=== PATIENT | female | born 1995 ===

== ENCOUNTER 2016-08-08 18:08 | Emergency (ER) | payer BC ==
[2016-08-08 18:15] VITALS: BP 125/81; PULSE 88; RESP 18; TEMP 98.6; O2SAT 100
[2016-08-08] MEDS ORDERED: Sodium Chloride 0.9% 1,000 ML IV STA (18:21)
[2016-08-08 19:01] LABS: RBC URINE 3 /hpf (0-3); URINE BACTERIA RARE (<OCC); URINE BILIRUBIN NEGATIVE (NEGATIVE); URINE BLOOD NEGATIVE (NEGATIVE); URINE COLOR YELLOW (YELLOW); URINE GLUCOSE (UA) NEG (Normal); URINE KETONE NEGATIVE (NEGATIVE); URINE LEUKOCYTE ESTERASE NEG Leu/uL (Negative); URINE PROTEIN 30 mg/dL (NEGATIVE); URINE UROBILINOGEN 0.2-1.0 mg/dL (0.2-1.0); WBC URINE 1 /hpf (0-5)
[2016-08-08 19:08] LABS: BASO # 0.1 K/uL (0.0-0.2); BASO % 0.4 % (0.0-2.0); EOS % 0.3 % (0.0-4.0); HEMATOCRIT 39.2 % (34.0-47.0); LYMPH # 1.3 K/uL (1.0-4.3); LYMPH % 10.8 % (20.0-40.0); MEAN CELL VOLUME 78.9 fl (81.0-99.0); MEAN CORPUSCULAR HEMOGLOBIN 25.1 pg (27.0-31.0); MEAN CORPUSCULAR HGB CONC 31.8 g/dL (33.0-37.0); MEAN PLATELET VOLUME 9.1 fl (7.2-11.7); MONO # 0.5 K/uL (0.0-0.8); MONO % 4.1 % (0.0-10.0); NEUT # 10.3 K/uL (1.8-7.0); NEUT % 84.4 % (50.0-75.0); RED CELL DISTRIBUTION WIDTH 15.7 % (11.5-14.5); WHITE BLOOD COUNT 12.3 K/uL (4.8-10.8)
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
[2016-08-08 19:38] LABS: ALB/GLOB RATIO 1.4 (1.0-2.1); ALKALINE PHOSPHATASE 56 U/L (38-126); ALT/SGPT 27 U/L (9-52); AST/SGOT 24 U/L (14-36); BILIRUBIN,TOTAL 0.5 mg/dl (0.2-1.3); BLOOD UREA NITROGEN 12 mg/dl (7-17); CARBON DIOXIDE 25 mmol/L (22-30); CHLORIDE 101 mmol/L (98-107); GFR AFRICAN-AMERICAN > 60; GLUCOSE,RANDOM 83 mg/dL (65-105); POTASSIUM 3.8 MMOL/L (3.6-5.0); SODIUM 137 mmol/l (132-148); TOTAL PROTEIN 7.9 G/DL (6.3-8.2)
== END 2016-08-08 20:16 | disposition home or self-care (01) ==
LOC: H.ER 18:08
DX: R10.9 Unspecified abdominal pain (principal)
CPT/HCPCS: 80053; 81003; 81025; 85025; 87390; 87491; 87591; 96374; 99283; J2405; J7040

== ENCOUNTER 2016-12-26 19:29 | Emergency (ER) | payer BC, MEDICAID ==
[2016-12-26 19:36] VITALS: O2SAT 100
[2016-12-26] MEDS ORDERED: Sodium Chloride 0.9% 1,000 ML IV STA (20:20)
[2016-12-26 20:44] LABS: BASO % 0.5 % (0.0-2.0); EOS # 0.1 K/uL (0.0-0.7); EOS % 1.2 % (0.0-4.0); HEMATOCRIT 38.7 % (34.0-47.0); LYMPH # 1.7 K/uL (1.0-4.3); LYMPH % 18.8 % (20.0-40.0); MEAN CELL VOLUME 84.4 fl (81.0-99.0); MEAN CORPUSCULAR HEMOGLOBIN 27.6 pg (27.0-31.0); MEAN CORPUSCULAR HGB CONC 32.7 g/dL (33.0-37.0); MEAN PLATELET VOLUME 8.7 fl (7.2-11.7); MONO # 0.6 K/uL (0.0-0.8); MONO % 6.1 % (0.0-10.0); NEUT # 6.8 K/uL (1.8-7.0); NEUT % 73.4 % (50.0-75.0); RED CELL DISTRIBUTION WIDTH 14.6 % (11.5-14.5); WHITE BLOOD COUNT 9.2 K/uL (4.8-10.8)
--- NOTE | 2016-12-26 20:46 | ED PDOC ---
HPI: Abdomen Time Seen by Provider: 12/26/16 20:01 Chief Complaint (Nursing): Abdominal Pain Chief Complaint (Provider): Abdominal pain and vomiting History Per: Patient History/Exam Limitations: no limitations Onset/Duration Of Symptoms: Days Current Symptoms Are (Timing): Still Present Location Of Pain/Discomfort: Epigastric Quality Of Discomfort: Burning Associated Symptoms: Nausea, Vomiting (3 episodes). denies: Fever, Chills Additional Complaint(s): Patient is a 21 y/o female () who is 6 weeks and presents to the ED complaining of epigastric and lower abdominal pain described as burning, with 3 episodes of vomiting. Patient reports she felt nauseated all day and that the burning pain is worse with vomiting. She denies any fever, chills, vaginal bleeding, or vaginal discharge. PCP: FAMILY PROVIDER,NO Abnormal Vaginal Bleeding: No : 2 Para: 1 Past Medical History Reviewed: Historical Data, Nursing Documentation, Vital Signs Vital Signs: Last Vital Signs Temp 98.5 F 12/26/16 19:33 Pulse 74 12/26/16 19:33 Resp 16 12/26/16 19:33 BP 140/69 12/26/16 19:33 Pulse Ox 100 12/26/16 23:47 - Medical History PMH: No Chronic Diseases - Surgical History Surgical History: No Surg Hx - Family History Family History: States: No Known Family Hx, Unknown Family Hx - Social History Current smoker - smoking cessation education provided: No Ex-Smoker (has not smoked in the last 12 months): No Alcohol: Social Drugs: Other (Xanax, Oxycodone) - Home Medications Home Medications: Ambulatory Orders Medication Instructions Recorded Doxylamine/Pyridoxine HCl (B6) 2 each PO QPM #30 tablet. 12/26/16 [Karen Pierce 10-10 mg Tablet] Famotidine 20 mg PO BID #30 tablet 12/26/16 Famotidine [Pepcid] 20 mg PO BID #20 tab 12/26/16 - Allergies Allergies/Adverse Reactions: Allergies Allergy/AdvReac Type Severity Reaction Status Date / Time No Known Allergies Allergy Verified 08/08/16 18:10 Review of Systems ROS Statement: Except As Marked, All Systems Reviewed And Found Negative Constitutional: Negative for: Fever, Chills Gastrointestinal: Positive for: Nausea, Vomiting, Abdominal Pain (epigastric and lower abdomen) Genitourinary Female: Negative for: Vaginal Discharge, Vaginal Bleeding Physical Exam - Reviewed Nursing Documentation Reviewed: Yes Vital Signs Reviewed: Yes - Physical Exam Appears: Positive for: No Acute Distress Head Exam: Positive for: ATRAUMATIC, NORMOCEPHALIC Skin: Positive for: Normal Color, Warm Eye Exam: Positive for: Normal appearance, EOMI, PERRL Neck: Positive for: Normal, Painless ROM, Supple Cardiovascular/Chest: Positive for: Regular Rate, Rhythm. Negative for: Murmur Respiratory: Positive for: Normal Breath Sounds. Negative for: Respiratory Distress Gastrointestinal/Abdominal: Positive for: Soft, Tenderness (mild epigastric tenderness to palpation) Back: Positive for: Normal Inspection. Negative for: L CVA Tenderness, R CVA Tenderness, Vertebral Tenderness Extremity: Positive for: Normal ROM. Negative for: Pedal Edema, Deformity Neurologic/Psych: Positive for: Alert, Oriented (x3). Negative for: Motor/ Sensory Deficits - Laboratory Results Result Diagrams: 12/26/16 20:40 12/26/16 20:40 - ECG O2 Sat by Pulse Oximetry: 100 (RA) Pulse Ox Interpretation: Normal Medical Decision Making Medical Decision Making: Time: 2018 Initial Impression: GERD, hyperemesis Initial Plan: --Labs --ED Urine --ED Urine Dipstick --Sodium Chloride 0.9% IV 1,000 mls/hr --Pepcid 20mg IVP --Reglan 10mg IVPB --Urine Culture --Urinalysis --US OB Transvaginal --Reevaluation 2310 US FINDINGS Gestation: A single intrauterine gestation is identified the crown-rump length measuring 2.9 mm, corresponding to an approximate gestational age of 5 weeks and 6 days. cardiac activity is identified at a rate of 112 beats per minute. Placenta/amniotic fluid: Cannot be adequately evaluated due to the early gestational age. Uterus/cervix: Cervix measures 4 cm, and is closed. Ovaries: Unremarkable in echogenicity and size. No mass. Free fluid: No free fluid. IMPRESSION: Single intrauterine gestation with a gestational age of 5 weeks and 6 days. cardiac activity is identified. 2341 Upon re-evaluation, patient is tolerating PO and feeling much better. Patient is stable for discharge home. Scribe Attestation: Documented by Lonny York and Deepti Juarez, acting as a scribe for Chase Teague MD Provider Scribe Attestation: All medical record entries made by the Scribe were at my direction and personally dictated by me. I have reviewed the chart and agree that the record accurately reflects my personal performance of the history, physical exam, medical decision making, and the department course for this patient. I have also personally directed, reviewed, and agree with the discharge instructions and disposition. Disposition - Clinical Impression Clinical Impression: Abdominal pain during - Disposition [facility] Disposition: Routine/Home Disposition Time: 23:41 Condition: STABLE Prescriptions: Doxylamine/Pyridoxine HCl (B6) [Karen Pierce 10-10 mg Tablet] 2 each PO QPM #30 tablet. Famotidine [Pepcid] 20 mg PO BID #20 tab Famotidine 20 mg PO BID #30 tablet Instructions: Abdominal Pain in (ED), Diet for Ulcers and Gastritis (ED), Gastroesophageal Reflux Disease (ED) Forms: [employer] [facility] ([place])
[2016-12-26 20:56] LABS: BLOOD UREA NITROGEN 9 mg/dl (7-17); CALCIUM 9.3 mg/dL (8.4-10.2); CARBON DIOXIDE 24 mmol/L (22-30); CHLORIDE 104 mmol/L (98-107); GFR AFRICAN-AMERICAN > 60; GLUCOSE,RANDOM 97 mg/dL (65-105); LIPASE 57 U/L (23-300); POTASSIUM 3.7 MMOL/L (3.6-5.0); SODIUM 138 mmol/l (132-148)
[2016-12-26 21:00] LABS: RBC URINE 3 /hpf (0-3); URINE BACTERIA FEW (<OCC); URINE BILIRUBIN NEGATIVE (NEGATIVE); URINE BLOOD NEGATIVE (NEGATIVE); URINE COLOR STRAW (YELLOW); URINE GLUCOSE (UA) NEG (Normal); URINE KETONE NEGATIVE (NEGATIVE); URINE LEUKOCYTE ESTERASE SMALL Leu/uL (Negative); URINE PROTEIN NEGATIVE (NEGATIVE); URINE UROBILINOGEN 0.2-1.0 mg/dL (0.2-1.0); WBC URINE 1 /hpf (0-5)
[2016-12-27 00:17] VITALS: BP 129/75; PULSE 82; RESP 17; TEMP 98
--- NOTE | 2016-12-27 15:11 | US ---
PROCEDURE: First trimester ultrasound HISTORY: Abdominal pain and vomiting, by history 6 weeks . COMPARISON: None available. TECHNIQUE: Transvaginal only. Real -time technique with 2D, duplex and color Doppler FINDINGS: LMP: 11/11/2016 Prior examinations from the current : None TECHNIQUE: Real-time 2D imaging, duplex and color Doppler. FINDINGS: Cardiac activity: Present Rate: 113 BPM Measurements: Elkins rump length: 0.29 cm Gestational age based on CRL 5 weeks 6 days Gestational age based on gestational sac measurement 5 weeks 6 days Gestational age derived from LMP: 6 weeks 3 days LUDY based on LMP: 08/18/2017 LUDY based on biometry: 08/22/2017 Gestational concordance documented Yolk sac identified Uterus: Unremarkable. No Cervical abnormalities: Negative examination for cervical dilatation or effacement. Closed cervix, cervical length 4.04 cm Subchorionic hemorrhage: None ADNEXA: Right: 1.9 x 2.7 x 3.4 cm. Multiple subcentimeter follicles. Normal Doppler arterial waveform documented. Left: 0.9 x 2.7 x 2.2 cm. Multiple subcentimeter follicles. Normal Doppler arterial waveform documented Fluid in the cul-de-sac: None IMPRESSION: Five weeks 6 days live intrauterine gestation. Gestational concordance documented. Concordant results (preliminary interpretation) provided by [employer]. Procedure Completed: 22:14 Preliminary ([facility]) Report: Dictated and Authenticated: 23:10 Final Interpretation: 15:10 December 27, 2016.
== END 2016-12-27 00:22 | disposition home or self-care (01) ==
LOC: H.ER 19:29
DX: O26.91 Pregnancy related conditions, unspecified, first trimester (principal); R10.2 Pelvic and perineal pain; Z3A.01 Less than 8 weeks gestation of pregnancy
CPT/HCPCS: 76817; 80048; 81003; 81025; 83690; 84702; 85025; 87086; 96361; 96374; 96375; 99284; J2765; J7040

== ENCOUNTER 2018-05-10 20:05 | Emergency (ER) | payer BC, MEDICAID ==
[2018-05-10 20:19] VITALS: RESP 16
[2018-05-10] MEDS ORDERED: Iohexol 240 (50 ml) PO ONE ×2 (20:47)
[2018-05-10] MEDS ORDERED: Sodium Chloride 0.9% 1,000 ML IV STA (20:50)
--- NOTE | 2018-05-10 21:09 | ED PDOC ---
HPI: Abdomen Time Seen by Provider: 05/10/18 20:29 Chief Complaint (Nursing): Abdominal Pain Chief Complaint (Provider): abd pain History Per: Patient (23yr old female c/o RLQ abd pain and epigastric pain for intermittently for 2 months. +nausea/vomiting and associated diarrhea with abd pain episodes. Pt reports she was seen today by pmd and for OP "ultrasound". Pt vebalizes pain worse after eating, describes pain as "burning" sensation. Denies urinary complaints and fever. ) History/Exam Limitations: no limitations Onset/Duration Of Symptoms: Days, Intermittent Episodes Pain Scale Rating Of: 9 Location Of Pain/Discomfort: RLQ, Epigastric, Periumbilical Quality Of Discomfort: Burning, "Pain" Associated Symptoms: Vomiting, Diarrhea Exacerbating Factors: Food Last Bowel Movement: Today Past Medical History Reviewed: Historical Data, Nursing Documentation, Vital Signs Vital Signs: Last Vital Signs Temp 98.1 F 05/10/18 20:16 Pulse 52 L 05/10/18 20:16 Resp 16 05/10/18 20:16 BP 116/60 05/10/18 20:16 Pulse Ox 98 05/10/18 20:16 - Medical History PMH: No Chronic Diseases - Surgical History Surgical History: No Surg Hx - Family History Family History: States: Unknown Family Hx - Home Medications Home Medications: Ambulatory Orders Medication Instructions Recorded Doxylamine/Pyridoxine HCl (B6) 2 each PO QPM #30 tablet. 12/26/16 [Karen Pierce 10-10 mg Tablet] Famotidine 20 mg PO BID #30 tablet 12/26/16 Famotidine [Pepcid] 20 mg PO BID #20 tab 12/26/16 Dicyclomine [Bentyl] 20 mg PO TID PRN #15 tab 05/11/18 Famotidine [Pepcid] 20 mg PO BID #14 tab 05/11/18 Ondansetron ODT [Zofran ODT] 4 mg PO Q8 PRN #10 odt 05/11/18 - Allergies Allergies/Adverse Reactions: Allergies Allergy/AdvReac Type Severity Reaction Status Date / Time No Known Allergies Allergy Verified 08/08/16 18:10 Review of Systems ROS Statement: Except As Marked, All Systems Reviewed And Found Negative Gastrointestinal: Positive for: Nausea, Vomiting, Abdominal Pain, Diarrhea Physical Exam - Reviewed Nursing Documentation Reviewed: Yes Vital Signs Reviewed: Yes - Physical Exam Appears: Positive for: Well, Non-toxic, Uncomfortable (pain) Head Exam: Positive for: ATRAUMATIC, NORMAL INSPECTION, NORMOCEPHALIC Skin: Positive for: Normal Color, Warm, DRY Eye Exam: Positive for: Normal appearance ENT: Positive for: Normal ENT Inspection Neck: Positive for: Normal Cardiovascular/Chest: Positive for: Regular Rate, Rhythm Respiratory: Positive for: CNT, Normal Breath Sounds Gastrointestinal/Abdominal: Positive for: Normal Exam, Bowel Sounds (normal bowel sounds), Soft, Tenderness (RLQ, periumbilical and epigastric ) Back: Positive for: Normal Inspection Extremity: Positive for: Normal ROM Neurologic/Psych: Positive for: Alert, Oriented - Laboratory Results Result Diagrams: 05/10/18 21:14 05/10/18 21:14 - ECG O2 Sat by Pulse Oximetry: 98 - Progress ED Course And Treament: -cbc -cmp -lipase -upreg -urinalysis -IV toradol -IV zofran -IV pepcid CT SCAN OF THE ABDOMEN AND PELVIS WITH CONTRAST. CLINICAL HISTORY: Right lower quadrant pain. TECHNIQUE: Multiple axial and coronal CT images were obtained through the abdomen and pelvis after administration of intravenous contrast material. COMMENTS: Changes of pelvic congestion syndrome. Moderate amount of fecal residue in the sigmoid colon. 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 Chronic finding. The liver is of uniform attenuation without mass or defect. There is no intra or extrahepatic biliary ductal dilatation. The spleen is normal. The gallbladder is within normal limits. The pancreas is of normal contour and attenuation characteristics. There is no evidence of adrenal mass. Both kidneys demonstrate prompt and equal nephrograms. The kidneys are normal in size, shape and configuration. There is no evidence of renal or ureteral mass. No renal or ureteral calculi are identified. There is no hydroureter or hydronephrosis. No evidence for appendicitis. There is no bowel wall thickening. No evidence for small or large bowel obstruction. There is no evidence of abdominal ascites or lymphadenopathy. There is no evidence of intrinsic or extrinsic bladder mass. There is no pelvic ascites or lymphadenopathy. Images of the lung bases show no evidence of pleural or parenchymal mass. There are no pleural effusions. The bony structures are free of lytic or blastic lesions. IMPRESSION: Changes of pelvic congestion syndrome. Moderate amount of fecal residue in the sigmoid colon. 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 Chronic finding. No evidence of acute abdominal or pelvic pathology On re-eval, patient resting comfortably; states pain improved Patient educated on findings, discharged with instructions to follow up with PMD and [facility] Rx Pepcid, Zofran, and Bentyl provided Return precautions given Disposition - Clinical Impression Clinical Impression: Abdominal pain - Patient ED Disposition Is Patient to be Admitted: No Counseled Patient/Family Regarding: Studies Performed, Diagnosis, Need For Followup, Rx Given - Disposition Disposition: Routine/Home Disposition Time: 02:12 Condition: IMPROVED Prescriptions: Dicyclomine [Bentyl] 20 mg PO TID PRN #15 tab PRN Reason: Pain, Mild (1-3) Famotidine [Pepcid] 20 mg PO BID #14 tab Ondansetron ODT [Zofran ODT] 4 mg PO Q8 PRN #10 odt PRN Reason: Nausea/Vomiting Instructions: Acute Abdomen (Belly Pain) Forms: [facility] (Citizen Of [place])
[2018-05-10 21:20] LABS: BASO # 0.1 K/uL (0.0-0.2); BASO % 0.6 % (0.0-2.0); EOS # 0.1 K/uL (0.0-0.7); EOS % 1.1 % (0.0-4.0); HEMOGLOBIN 12.4 g/dL (12.0-16.0); LYMPH # 1.4 K/uL (1.0-4.3); LYMPH % 12.2 % (20.0-40.0); MEAN CELL VOLUME 88.3 fl (81.0-99.0); MEAN CORPUSCULAR HEMOGLOBIN 28.9 pg (27.0-31.0); MEAN CORPUSCULAR HGB CONC 32.8 g/dL (33.0-37.0); MEAN PLATELET VOLUME 8.8 fl (7.2-11.7); MONO # 0.5 K/uL (0.0-0.8); MONO % 4.6 % (0.0-10.0); NEUT # 9.2 K/uL (1.8-7.0); NEUT % 81.5 % (50.0-75.0); RBC 4.29 Mil/uL (3.80-5.20); RED CELL DISTRIBUTION WIDTH 13.4 % (11.5-14.5); WHITE BLOOD COUNT 11.2 K/uL (4.8-10.8)
[2018-05-10 21:38] LABS: ALB/GLOB RATIO 1.6 (1.0-2.1); ALBUMIN 4.1 g/dL (3.5-5.0); ALT/SGPT 19 U/L (9-52); AST/SGOT 30 U/L (14-36); BLOOD UREA NITROGEN 9 mg/dl (7-17); CALCIUM 9.4 mg/dL (8.4-10.2); GFR NON-AFRICAN AMERICAN > 60; LIPASE 47 U/L (23-300)
[2018-05-10 21:43] LABS: SQUAMOUS EPITHIAL 1 /hpf (0-5); URINE BILIRUBIN NEGATIVE (NEGATIVE); URINE BLOOD NEGATIVE (NEGATIVE); URINE CLARITY CLEAR (Clear); URINE COLOR YELLOW (YELLOW); URINE GLUCOSE (UA) NEG (NEGATIVE); URINE LEUKOCYTE ESTERASE NEG Leu/uL (Negative); URINE PROTEIN NEGATIVE (NEGATIVE); URINE UROBILINOGEN 0.2-1.0 mg/dL (0.2-1.0)
[2018-05-10] MEDS ORDERED: Iohexol 240 (50 ml) ONE (22:05)
[2018-05-11] MEDS ORDERED: Sodium Chloride 0.9% 50 ML IV ONE (00:42)
[2018-05-11] MEDS ORDERED: Iohexol 300 100 ML IJ ONE (00:42)
[2018-05-11 00:59] LABS: BARBITURATES, UR NEGATIVE (NEGATIVE); BENZODIAZEPINES, UR NEGATIVE (NEGATIVE); OPIATES, UR NEGATIVE (NEGATIVE); PHENCYCLIDINE, UR NEGATIVE (NEGATIVE)
[2018-05-11 02:32] VITALS: BP 117/62; PULSE 58; TEMP 98.8; O2SAT 95
--- NOTE | 2018-05-11 10:30 | CT ---
Date of service: 05/11/2018 PROCEDURE: CT Abdomen and Pelvis with contrast HISTORY: Right lower quadrant abdominal pain COMPARISON: None available. TECHNIQUE: CT scan of the abdomen and pelvis was performed after administration of intravenous contrast. Oral contrast was administered. Coronal and sagittal reformatted images were obtained. Contrast dose: 85 mL Omnipaque 300 Radiation dose: Total exam DLP = 477.2 mGy-cm. This CT exam was performed using one or more of the following dose reduction techniques: Automated exposure control, adjustment of the mA and/or kV according to patient size, and/or use of iterative reconstruction technique. FINDINGS: LOWER THORAX: The visualized lungs are clear. LIVER: Normal in size with homogeneous enhancement. No gross lesion or ductal dilatation. GALLBLADDER AND BILE DUCTS: Well distended. No calcified gallstones, wall thickening or pericholecystic fluid. PANCREAS: Normal in size with homogeneous enhancement. No gross lesion or ductal dilatation. SPLEEN: Normal in size and appearance. ADRENALS: No discrete nodule. KIDNEYS AND URETERS: Normal in size with homogeneous enhancement. No hydronephrosis. No solid mass. VASCULATURE: No aortic aneurysm. There are no aortic atherosclerotic calcifications or mural plaque present. BOWEL: Evaluation of the bowel is limited in the absence of oral contrast. The small bowel loops are normal in caliber. The colon is grossly normal in appearance. No bowel wall thickening or obstruction. APPENDIX: Normal appendix. PERITONEUM: No free fluid. No free air. LYMPH NODES: No enlarged lymph nodes. BLADDER: Well distended and normal in appearance. REPRODUCTIVE: The uterus is normal in size. There are dilated venous collaterals in the left adnexa which could represent pelvic congestion syndrome. BONES: No acute fracture. Within normal limits for the patient's age. OTHER FINDINGS: There are postsurgical changes of augmentation in bilateral buttocks. IMPRESSION: No acute abdominal or pelvic abnormality. A preliminary report was provided by [employer].
== END 2018-05-11 02:33 | disposition home or self-care (01) ==
LOC: H.ER 20:05
DX: M79.3 Panniculitis, unspecified (principal); R10.13 Epigastric pain; N94.89 Other specified conditions associated with female genital organs and menstrual cycle
CPT/HCPCS: 74177; 80053; 81003; 81025; 83690; 85025; 96361; 96374; 96375; 99283; G0480; J1885; J2405; J2765; J7030; Q9966; Q9967